=== PATIENT | male | born 2000 | race Hispanic/Latino ===

== ENCOUNTER 2024-06-24 06:48 | Emergency (ER) | payer BC ==
[2024-06-24] MEDS ORDERED: Ipratropium/Albuterol 3 ML NEB ONE (07:10)
[2024-06-24] MEDS ORDERED: methylPREDNISolone Sod Succ/PF 125 MG/2 ML VIAL ONE (07:13)
== END 2024-06-24 08:05 | disposition home or self-care (01) ==
LOC: BURERS 06:48
DX: T78.40XA Allergy, unspecified, initial encounter (principal); F17.290 Nicotine dependence, other tobacco product, uncomplicated
CPT/HCPCS: 71046; 94640; 96372; J2919; J7620